=== PATIENT | female | born 1950 | race Caucasian/White ===

== ENCOUNTER → 2016-10-01 | Outpatient (CLI) | payer OTHER ==
[~2016-10-01] MED LIST: ADVIL200 MG PO; FLEXERIL10 MG PO; MOTRIN800 MG PO; OMEPRAZOLE20 MG PO; SIMVASTATIN20 MG PO; VICODIN 5/500 505 MG PO
== END | disposition home or self-care (01) ==
LOC: CARD 01:19
DX: I49.9 Cardiac arrhythmia, unspecified (principal); R06.02 Shortness of breath

== ENCOUNTER → 2017-12-02 | Outpatient (CLI) | payer OTHER ==
[~2017-12-02] MED LIST changes: +ASPIRIN81 M1 PO; +ATENOLOL25 MG PO; +CENTRUM SILVER1 EACH PO; +RESTASIS1 EACH OP; +VITAMIN D31000 UNI1 PO
--- NOTE | ~2017-12-02 | ST ---
[place], [place] EXERCISE STRESS TEST REPORT NAME: [address] UNIT #: [id number] ROOM: DOCTOR: JULIA SANTILLAN MD BIRTHDATE: [birth year] DOS: 12/02/2017 EXERCISE MYOCARDIAL STRESS TEST INDICATIONS: Precordial chest pain. PROCEDURE: The patient exercised on a full Eren protocol for 6 minutes and 15 seconds, achieving a maximum heart rate of 135, which represented 88% of her maximum predicted heart rate. She stopped for fatigue and did not reproduce her chest discomfort. She achieved a peak MET level of 7. Her resting blood pressure 128/82 morris to 172/84. The resting electrocardiogram was normal. With exercise, she did have [address] segment depression in the inferior and lateral leads. ST changes reverted to normal baseline within 1 minute of recovery. She had no chest pain. Chung treadmill score was 1.3, consistent with a moderate risk for future cardiac events. One minute prior to completion of exercise protocol, she was given radionuclide intravenously. IMPRESSION: 1. Adequate exercise capacity without chest pain. The patient did have [address] segment depression at peak exercise that returned to baseline within a minute of recovery. 2. Chung treadmill score 1.3, consistent with a moderate risk for future cardiac events. 3. Radionuclide injected. Please see the separate imaging report for further details of the patient's stress test results. JULIA SANTILLAN MD CM:STRESS:EXERCISE STRESS TEST REPORT [id number] JULIA SANTILLAN MD
== END | disposition home or self-care (01) ==
LOC: CARD 01:22
DX: E78.00 Pure hypercholesterolemia, unspecified (principal); E11.9 Type 2 diabetes mellitus without complications; R07.89 Other chest pain

== ENCOUNTER 2018-05-08 13:09 | Emergency (ER) | payer MEDICARE ==
[~2018-05-08] VITALS: Ht 157.4 cm; Wt 73.9 kg
[2018-05-08 13:10] VITALS: BP 164/90
[2018-05-08] MEDS ORDERED: KENALOG 0.1%80 GM T (15:48)
[2018-05-08] MEDS ORDERED: PREDNISONE50 MG PO (15:48)
[2018-05-08] MEDS ORDERED: CLOBETASOL EMOL15 GM T (15:48)
== END 2018-05-08 15:55 | disposition home or self-care (01) ==
LOC: ED 13:09
DX: L25.9 Unspecified contact dermatitis, unspecified cause (principal); Z88.2 Allergy status to sulfonamides; Z79.899 Other long term (current) drug therapy; Z79.02 Long term (current) use of antithrombotics/antiplatelets

== ENCOUNTER → 2018-10-19 | Outpatient (CLI) | payer MEDICARE ==
[~2018-10-19] MED LIST changes: +CLOBETASOL EMOL15 GM T; +KENALOG 0.1%80 GM T; +PREDNISONE50 MG PO
== END | disposition home or self-care (01) ==
LOC: MAMMO 01:30
DX: Z12.31 Encounter for screening mammogram for malignant neoplasm of breast (principal); Z13.820 Encounter for screening for osteoporosis; M85.80 Other specified disorders of bone density and structure, unspecified site; Z78.0 Asymptomatic menopausal state

== ENCOUNTER → 2019-10-04 | Outpatient (CLI) | payer MEDICARE ==
[2019-10-04 14:42] LABS: BASO # 0.1 10*3/uL (0.0-0.1); BASO % 0.4 % (0.0-1.0); EOS # 0.2 10*3/uL (0.0-0.4); EOS % 1.3 % (1.0-4.0); HEMATOCRIT 39.7 % (37.0-47.0); HEMOGLOBIN 12.8 g/dl (12.0-16.0); LYMPH # 2.6 10*3/uL (1.3-4.4); LYMPH % 19.7 % (27.0-41.0); MEAN CELL VOLUME 92.1 fl (81.0-99.0); MEAN CORPUSCULAR HGB 29.7 pg (27.0-31.0); MEAN CORPUSCULAR HGB CONC 32.2 g/dl (33.0-37.0); MEAN PLATELET VOLUME 10.7 fl (9.6-12.3); MONO # 1.4 10*3/uL (0.1-1.0); MONO % 10.2 % (3.0-9.0); PLATELET COUNT AUTOMATED 259 10*3/uL (130-400); RED BLOOD COUNT 4.31 10*6/uL (4.10-5.10); RED CELL DISTRI WIDTH 14.2 % (0-14.5); WHITE BLOOD COUNT 13.3 10*3/uL (4.8-10.8)
[2019-10-05 08:06] LABS: HEPATITIS B SURFACE AG Negative (Negative); HEPATITIS C VIRUS ANTIBODY <0.1 s/co (0.0-0.9); RHEUMATOID ARTHRITIS FACTOR 32.1 IU/mL (0.0-13.9)
[2019-10-05 11:06] LABS: ANTI-RNP ANTIBODIES <0.2 AI (0.0-0.9)
[2019-10-05 22:03] LABS: CCP ANTIBODIES IGG/IGA 17 units (0-19)
[2019-10-06 02:03] LABS: LUPUS REFLEX INTERPRETATION Comment: (.); PTT-LA 31.6 sec (0.0-51.9)
[2019-10-09 17:07] LABS: HLA-B27 ANTIGEN Negative (.)
== END | disposition home or self-care (01) ==
LOC: LAB 13:21
PROVIDERS: Orthopaedic Surgery
DX: M25.50 Pain in unspecified joint (principal); E78.00 Pure hypercholesterolemia, unspecified; R53.83 Other fatigue

== ENCOUNTER → 2020-03-10 | Outpatient (CLI) | payer MEDICARE | END | disposition home or self-care (01) | LOC: MAMMO 03:52 | DX: Z12.31 Encounter for screening mammogram for malignant neoplasm of breast (principal) ==

== ENCOUNTER → 2021-10-13 | Outpatient (CLI) | payer MEDICARE | END | disposition home or self-care (01) | LOC: RESCLI 10-12 07:54 | PROVIDERS: ATTEND Internal Medicine | DX: H04.123 Dry eye syndrome of bilateral lacrimal glands (principal); I10 Essential (primary) hypertension; E78.5 Hyperlipidemia, unspecified; K21.9 Gastro-esophageal reflux disease without esophagitis; M06.9 Rheumatoid arthritis, unspecified; I25.10 Atherosclerotic heart disease of native coronary artery without angina pectoris; Z79.899 Other long term (current) drug therapy ==

== ENCOUNTER → 2022-04-05 | Outpatient (CLI) | payer MEDICARE | END | disposition home or self-care (01) | LOC: RESCLI 05:18 | PROVIDERS: ATTEND Internal Medicine | DX: H04.123 Dry eye syndrome of bilateral lacrimal glands (principal); I10 Essential (primary) hypertension; Z79.899 Other long term (current) drug therapy; Z88.8 Allergy status to other drugs, medicaments and biological substances; Z79.82 Long term (current) use of aspirin ==

== ENCOUNTER → 2022-09-29 | Outpatient (CLI) | payer MEDICARE | END | disposition home or self-care (01) | LOC: RESCLI 04:30 | PROVIDERS: ATTEND Student in an Organized Health Care Education/Training Program | DX: H04.123 Dry eye syndrome of bilateral lacrimal glands (principal); K21.9 Gastro-esophageal reflux disease without esophagitis; E78.5 Hyperlipidemia, unspecified; I10 Essential (primary) hypertension; E56.9 Vitamin deficiency, unspecified; K57.30 Diverticulosis of large intestine without perforation or abscess without bleeding; E55.9 Vitamin D deficiency, unspecified; K76.0 Fatty (change of) liver, not elsewhere classified; Z98.890 Other specified postprocedural states; Z88.2 Allergy status to sulfonamides; Z90.722 Acquired absence of ovaries, bilateral; Z79.82 Long term (current) use of aspirin; Z79.899 Other long term (current) drug therapy ==

== ENCOUNTER → 2022-11-22 | Outpatient (CLI) | payer MEDICARE | END | disposition home or self-care (01) | LOC: CARD 01:02 | PROVIDERS: ATTEND Internal Medicine Cardiovascular Disease | DX: I08.0 Rheumatic disorders of both mitral and aortic valves (principal) ==

== ENCOUNTER → 2022-12-22 | Outpatient (CLI) | payer MEDICARE ==
[2022-12-22 10:25] LABS: BASO # 0.1 10*3/uL (0.0-0.1); BASO % 0.8 % (0.0-1.0); EOS # 0.1 10*3/uL (0.0-0.4); HEMATOCRIT 40.9 % (37.0-47.0); LYMPH # 2.1 10*3/uL (1.3-4.4); LYMPH % 32.2 % (27.0-41.0); MEAN CELL VOLUME 89.3 fl (81.0-99.0); MEAN CORPUSCULAR HGB 29.3 pg (27.0-31.0); MEAN CORPUSCULAR HGB CONC 32.8 g/dl (33.0-37.0); MEAN PLATELET VOLUME 10.4 fl (9.6-12.3); MONO # 0.4 10*3/uL (0.1-1.0); MONO % 6.7 % (3.0-9.0); NEUT # 3.8 10*3/uL (2.3-7.9); NEUT % 58.1 % (47.0-73.0); PLATELET COUNT AUTOMATED 243 10*3/uL (130-400); RED BLOOD COUNT 4.58 10*6/uL (4.10-5.10); RED CELL DISTRI WIDTH 13.8 % (0-14.5); WHITE BLOOD COUNT 6.5 10*3/uL (4.8-10.8)
[2022-12-22 10:49] LABS: ALKALINE PHOSPHATASE 89 U/L (46-116); BUN 21 mg/dl (9-23); CHLORIDE 107 mmol/L (98-107); POTASSIUM 3.9 mmol/L (3.4-5.1); SGPT/ALT 19 U/L (10-49); TOTAL PROTEIN 6.8 gm/dL (6.0-8.0)
[2022-12-22 12:54] LABS: ACT PARTIAL THROMBO TIME 25.9 SECONDS (20.0-32.1)
== END | disposition home or self-care (01) ==
LOC: LAB 09:39
PROVIDERS: ATTEND Internal Medicine Cardiovascular Disease
DX: I25.118 Atherosclerotic heart disease of native coronary artery with other forms of angina pectoris (principal); I10 Essential (primary) hypertension; R06.02 Shortness of breath

== ENCOUNTER → 2023-03-11 | Outpatient (CLI) | payer MEDICARE | END | disposition home or self-care (01) | LOC: US 00:49 | PROVIDERS: ATTEND Internal Medicine Cardiovascular Disease | DX: I65.23 Occlusion and stenosis of bilateral carotid arteries (principal); I20.8 Other forms of angina pectoris; Z86.79 Personal history of other diseases of the circulatory system ==

== ENCOUNTER → 2023-06-01 | Outpatient (CLI) | payer MEDICARE ==
[2023-06-01 12:52] LABS: CHOLESTEROL 138 mg/dL (<200); LDL CHOLESTEROL 47 mg/dL (9-159); TRIGLYCERIDES 98 mg/dl (<150)
== END | disposition home or self-care (01) ==
LOC: LAB 11:49
PROVIDERS: ATTEND Internal Medicine Cardiovascular Disease
DX: I10 Essential (primary) hypertension (principal); I25.10 Atherosclerotic heart disease of native coronary artery without angina pectoris

== ENCOUNTER → 2023-10-31 | Outpatient (CLI) | payer MEDICARE ==
[~2023-10-31] MED LIST changes: +PERCOCET 5-3251 EACH PO
== END | disposition home or self-care (01) ==
LOC: RESCLI 02:52
PROVIDERS: ATTEND Student in an Organized Health Care Education/Training Program
DX: K21.9 Gastro-esophageal reflux disease without esophagitis (principal); I10 Essential (primary) hypertension; E78.5 Hyperlipidemia, unspecified; I25.10 Atherosclerotic heart disease of native coronary artery without angina pectoris; H04.123 Dry eye syndrome of bilateral lacrimal glands; K76.0 Fatty (change of) liver, not elsewhere classified; E55.9 Vitamin D deficiency, unspecified; M06.9 Rheumatoid arthritis, unspecified; Z79.899 Other long term (current) drug therapy; Z98.890 Other specified postprocedural states

== ENCOUNTER → 2023-11-14 | Outpatient (CLI) | payer MEDICARE ==
[2023-11-14 12:05] LABS: CHOLESTEROL 145 mg/dL (<200); LDL CHOLESTEROL 53 mg/dL (9-159); TRIGLYCERIDES 102 mg/dl (<150)
== END | disposition home or self-care (01) ==
LOC: LAB 11:03
PROVIDERS: ATTEND Internal Medicine Cardiovascular Disease
DX: I25.10 Atherosclerotic heart disease of native coronary artery without angina pectoris (principal); I10 Essential (primary) hypertension

== ENCOUNTER → 2024-11-06 | Outpatient (CLI) | payer MEDICARE | END | disposition home or self-care (01) | LOC: RESCLI 02:51 | PROVIDERS: ATTEND Family Medicine | DX: K21.9 Gastro-esophageal reflux disease without esophagitis (principal); E78.2 Mixed hyperlipidemia; H04.129 Dry eye syndrome of unspecified lacrimal gland; I10 Essential (primary) hypertension; I25.10 Atherosclerotic heart disease of native coronary artery without angina pectoris; Z79.899 Other long term (current) drug therapy; Z98.890 Other specified postprocedural states ==